=== PATIENT | male | born 1990 | race Two or more races ===

== ENCOUNTER 2017-07-15 10:36 | Emergency (ER) | payer SELFPAY ==
--- NOTE | 2017-07-15 10:54 | ED PDOC ---
HPI: Psych/Substance Abuse Time Seen by Provider: 07/15/17 10:46 Chief Complaint (Provider): EtOH ED Caveat: Uncooperative (agitated) History Per: EMS History/Exam Limitations: other (agressive, agitated behavior) Current Symptoms Are (Timing): Still Present Additional Complaint(s): 27 year old male presents to the emergency department via EMS and the [place] [employer] after being found staggering on the street. EMS states he became increasingly violent and agitated, requiring restraints by the police. Past Medical History Reviewed: Unable To Obtain (secondary to patients behavior) - Family History Family History: States: Unknown Family Hx - Allergies Allergies/Adverse Reactions: Allergies Allergy/AdvReac Type Severity Reaction Status Date / Time Unobtainable Allergy Verified 07/15/17 10:47 Review of Systems Review Of Systems: ROS cannot be obtained secondary to pt's inabilty to answer questions. Physical Exam - Reviewed Nursing Documentation Reviewed: Yes Vital Signs Reviewed: Yes - Physical Exam Head Exam: Positive for: ATRAUMATIC, NORMAL INSPECTION, NORMOCEPHALIC Cardiovascular/Chest: Positive for: Regular Rate, Rhythm. Negative for: Murmur Respiratory: Positive for: Normal Breath Sounds. Negative for: Accessory Muscle Use, Respiratory Distress Neurologic/Psych: Positive for: Mood/Affect (screaming, agitated). Negative for : Motor/Sensory Deficits - Laboratory Results Result Diagrams: 07/15/17 11:22 07/15/17 11:22 Medical Decision Making Medical Decision Making: Time: 10:47 Initial Plan: --Alcohol serum --CMP --CBC with differential --Drug Screen --Ativan 2mg IM --Haloperidol Lactate 5mg IM --Restraints Scribe Attestation: Documented by Roopa Galeano, acting as a scribe for Abran F Safran MD Provider Scribe Attestation: All medical entries made by the Scribe were at my direction and personally dictated by me. I have reviewed the chart and agree that the record accurately reflects my personal performance of the history, physical exam, medical decision making, and the department course for this patient. I have also personally directed, reviewed, and agree with the discharge instructions and disposition. Disposition - Clinical Impression Clinical Impression: Alcohol abuse - Patient ED Disposition Is Patient to be Admitted: Transfer of Care - Disposition Disposition: Transfer of Care Disposition Time: 16:50 Condition: FAIR Patient Signed Over To: Carmen Turcios
[2017-07-15 11:29] LABS: BASO % 1.4 % (0.0-2.0); EOS # 0.1 K/uL (0.0-0.7); EOS % 2.2 % (0.0-4.0); HEMOGLOBIN 12.7 g/dL (12.0-18.0); LYMPH # 1.7 K/uL (1.0-4.3); LYMPH % 48.1 % (20.0-40.0); MEAN CELL VOLUME 80.4 fl (80.0-94.0); MEAN CORPUSCULAR HEMOGLOBIN 26.6 pg (27.0-31.0); MEAN CORPUSCULAR HGB CONC 33.1 g/dL (33.0-37.0); MEAN PLATELET VOLUME 8.4 fl (7.2-11.7); MONO # 0.3 K/uL (0.0-0.8); MONO % 9.8 % (0.0-10.0); NEUT # 1.3 K/uL (1.8-7.0); NEUT % 38.5 % (50.0-75.0); NRBC % 0.2 % (0.0-0.0); RBC 4.76 Mil/uL (4.40-5.90); WHITE BLOOD COUNT 3.4 K/uL (4.8-10.8)
[2017-07-15 11:43] LABS: ALB/GLOB RATIO 1.3 (1.0-2.1); ALBUMIN 4.6 g/dL (3.5-5.0); ALT/SGPT 32 U/L (21-72); AST/SGOT 42 U/L (17-59); BLOOD UREA NITROGEN 13 mg/dl (9-20); CALCIUM 9.2 mg/dL (8.4-10.2); GFR AFRICAN-AMERICAN > 60; GFR NON-AFRICAN AMERICAN > 60
--- NOTE | 2017-07-15 17:19 | ED PDOC ---
- Laboratory Results Result Diagrams: 07/15/17 11:22 07/15/17 11:22 - ECG O2 Sat by Pulse Oximetry: 98 (RA) Pulse Ox Interpretation: Normal Medical Decision Making Medical Decision Making: -- Patient signed to me by Dr. Fuller @ 1700, pending sobriety. Time: 1844 -- Patient is sober, awake and alert, stable gait and ready for discharge. Scribe Attestation: Documented by Rubina Mane, acting as a scribe for Dr. Carmen Turcios MD Provider Scribe Attestation: All medical record entries made by the Scribe were at my direction and personally dictated by me. I have reviewed the chart and agree that the record accurately reflects my personal performance of the history, physical exam, medical decision making, and the department course for this patient. I have also personally directed, reviewed, and agree with the discharge instructions and disposition. Disposition Counseled Patient/Family Regarding: Studies Performed, Diagnosis, Need For Followup - Clinical Impression Clinical Impression: Alcohol abuse - POA Present On Arrival: None - Disposition Referrals: [facility] [Outside] [facility] [Outside] Disposition: Routine/Home Disposition Time: 18:45 Condition: IMPROVED Additional Instructions: follow up with your primary doctor in 1-2 days return to the ED with any worsening or concerning symptoms Instructions: Alcohol Abuse and Alcoholism (DC), Polysubstance Abuse (DC) Forms: [employer] ([place]gasque)
[2017-07-15 18:39] LABS: BARBITURATES, UR NEGATIVE (NEGATIVE)
[2017-07-15 18:41] LABS: BENZODIAZEPINES, UR POSITIVE (NEGATIVE); OPIATES, UR NEGATIVE (NEGATIVE); PHENCYCLIDINE, UR NEGATIVE (NEGATIVE)
[2017-07-15 19:15] VITALS: BP 117/78; PULSE 70; RESP 18; TEMP 98.9
[2017-07-15 23:27] VITALS: O2SAT 98
== END 2017-07-15 19:23 | disposition home or self-care (01) ==
LOC: H.ER 10:36
DX: F10.10 Alcohol abuse, uncomplicated (principal)
CPT/HCPCS: 80053; 85025; 96372; 99283; G0480; J1630; J2060